=== PATIENT | male | born 1965 | race African-American/Black ===

== ENCOUNTER 2019-02-09 09:52 | Emergency (ER) | payer OTHER ==
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
[2019-02-09] MEDS ORDERED: CLINDAMYCIN IV 150 MG/ML (4 mL) VIAL ONE (11:12)
[2019-02-09] MEDS ORDERED: HYDROCODONE/APAP 5/325 MG TAB ONE (11:12)
--- NOTE | 2019-02-09 11:34 | ER ---
Nurse's Notes [facility] Name: Cb Potts Age: 53 yrs Sex: Male : 1965 Arrival Date: 02/09/2019 Time: 09:57 Bed 23 Private MD: Diagnosis: Dental pain Presentation: 02/09 10:03 Presenting complaint: Left lower molar pain x 5 days, left sided facial swelling, hb subjective fever, and chills x 3 days. Transition of care: patient was not received from another setting of care. Onset of symptoms was February 05, 2019. Risk Assessment: Do you want to hurt yourself or someone else? Patient reports no desire to harm self or others. Initial Sepsis Screen: Does the patient meet any 2 criteria? No. Patient's initial sepsis screen is negative. Does the patient have a suspected source of infection? No. Patient's initial sepsis screen is negative. Care prior to arrival: None. 10:03 Method Of Arrival: Ambulatory hb 10:03 Acuity: KATHIA 3 hb Historical: - Allergies: 10:06 No Known Allergies; hb - PMHx: 10:21 pulmonary embolism; CVA; aj1 - Immunization history:: Adult Immunizations up to date. - Social history:: Smoking status: Patient uses tobacco products, smokes one-half pack cigarettes per day. - Ebola Screening: : No symptoms or risks identified at this time. Screenin:18 Abuse screen: Denies threats or abuse. Denies injuries from another. Nutritional aj1 screening: No deficits noted. Tuberculosis screening: No symptoms or risk factors identified. 12:03 Fall Risk None identified. aj1 Assessment: 10:18 General: Appears in no apparent distress. uncomfortable, Behavior is calm, cooperative, aj1 appropriate for age. Pain: Complains of pain in left jaw. Neuro: Level of Consciousness is awake, alert, obeys commands. Cardiovascular: Patient's skin is warm and dry. Respiratory: Airway is patent Respiratory effort is even, unlabored, Respiratory pattern is regular, symmetrical. GI: No signs and/or symptoms were reported involving the gastrointestinal system. : No signs and/or symptoms were reported regarding the genitourinary system. EENT: Reports toothache, sore throat. Derm: Skin is normal. Musculoskeletal: Swelling present in left jaw, mouth and submental area. 11:20 Reassessment: Patient appears in no apparent distress at this time. No changes from aj1 previously documented assessment. Patient and/or family updated on plan of care and expected duration. Pain level reassessed. Patient is alert, oriented x 3, equal unlabored respirations, skin warm/dry/pink. 12:02 Reassessment: Patient appears in no apparent distress at this time. No changes from aj1 previously documented assessment. Patient and/or family updated on plan of care and expected duration. Pain level reassessed. Patient is alert, oriented x 3, equal unlabored respirations, skin warm/dry/pink. Vital Signs: 10:05 BP 171 / 92; Pulse 97; Resp 16; Temp 100.8(TE); Pulse Ox 97% on R/A; Weight 95.25 kg; hb Height 5 ft. 11 in. (180.34 cm); Pain 7/10; 12:02 BP 165 / 89; Pulse 92; Resp 18; Pulse Ox 97% on R/A; aj1 10:05 Body Mass Index 29.29 (95.25 kg, 180.34 cm) hb ED Course: 09:57 Patient arrived in ED. mr 10:05 Triage completed. hb 10:06 Arm band placed on right wrist. hb 10:18 Kym Acevedo, RN is Primary Nurse. aj1 10:18 Patient has correct armband on for positive identification. Bed in low position. Call aj1 light in reach. Side rails up X 1. Family at bedside. 10:18 No provider procedures requiring assistance completed. aj1 10:20 Anand Hawley NP is PHCP. pm1 10:20 Mark Mcgrath MD is Attending Physician. pm1 12:02 Patient did not have IV access during this emergency room visit. aj1 Administered Medications: 11:17 Drug: Clindamycin 300 mg Route: IM; Site: left gluteus; aj1 11:17 Drug: [place] 5 mg-325 mg 1 tabs Route: PO; aj1 12:01 Follow up: Response: No adverse reaction; Pain is decreased aj1 11:18 Drug: Clindamycin 300 mg Route: IM; Site: right gluteus; aj1 12:01 Follow up: Response: No adverse reaction aj1 Outcome: 11:33 Discharge ordered by . pm1 12:02 Discharged to home ambulatory. aj1 12:02 Condition: good 12:02 Discharge instructions given to patient, Instructed on discharge instructions, follow up and referral plans. no drinking with medication, no driving heavy equipment, medication usage, Demonstrated understanding of instructions, follow-up care, medications, Prescriptions given X 2. 12:03 Patient left the ED. aj1 Signatures: Kym Acevedo RN RN aj1 Rebecca Caceres mr Anand Hawley, INDUSTRIAL TECH INSTRUCTOR INDUSTRIAL TECH INSTRUCTOR pm1 Morelia Grimes RN RN hb
--- NOTE | 2019-02-09 11:35 | EDPHYS ---
Physician Documentation [facility] Name: Cb Potts Age: 53 yrs Sex: Male : 1965 Arrival Date: 02/09/2019 Time: 09:57 Bed 23 Private MD: ED Physician Mark Mcgrath HPI: 02/09 11:25 This 53 yrs old Black Male presents to ER via Ambulatory with complaints of Fever, pm1 Toothache. 11:25 The patient presents with pain, swelling. The problem is located in the lower left pm1 second bicuspid. Onset: The symptoms/episode began/occurred 5 day(s) ago. Duration: The symptoms are continuous. Modifying factors: The symptoms are alleviated by over the counter medications, Tylenol, NSAIDs. Associated signs and symptoms: Pertinent positives: subjective fever, Pertinent negatives: inability to eat, pain, vomiting. Severity of symptoms: in the emergency department the symptoms are actually worse. on and off dental pain for the past 1 year post getting root canal to tooth that is giving him pain. Historical: - Allergies: 10:06 No Known Allergies; hb - PMHx: 10:21 pulmonary embolism; CVA; aj1 - Immunization history:: Adult Immunizations up to date. - Social history:: Smoking status: Patient uses tobacco products, smokes one-half pack cigarettes per day. - Ebola Screening: : No symptoms or risks identified at this time. ROS: 11:25 Constitutional: Negative for fever, chills, and weight loss, Eyes: Negative for injury, pm1 pain, redness, and discharge. 11:25 Neck: Negative for injury, pain, and swelling, Cardiovascular: Negative for chest pain, palpitations, and edema, Respiratory: Negative for shortness of breath, cough, wheezing, and pleuritic chest pain, Abdomen/GI: Negative for abdominal pain, nausea, vomiting, diarrhea, and constipation, Back: Negative for injury and pain, MS/Extremity: Negative for injury and deformity, Skin: Negative for injury, rash, and discoloration. 11:25 Neuro: Negative for headache, weakness, numbness, tingling, and seizure. 11:25 ENT: Positive for dental pain, Negative for sore throat, difficulty swallowing, difficulty handling secretions, hoarseness. Exam: 11:25 Constitutional: This is a well developed, well nourished patient who is awake, alert, pm1 and in no acute distress. Head/Face: Normocephalic, atraumatic. Trace swelling to left mandible Eyes: Pupils equal round and reactive to light, extra-ocular motions intact. Lids and lashes normal. Conjunctiva and sclera are non-icteric and not injected. Cornea within normal limits. Periorbital areas with no swelling, redness, or edema. 11:25 Neck: Trachea midline, no thyromegaly or masses palpated, and no cervical lymphadenopathy. Supple, full range of motion without nuchal rigidity, or vertebral point tenderness. No Meningismus. Chest/axilla: Normal chest wall appearance and motion. Nontender with no deformity. No lesions are appreciated. Cardiovascular: Regular rate and rhythm with a normal S1 and S2. No gallops, murmurs, or rubs. Normal PMI, no JVD. No pulse deficits. Respiratory: Lungs have equal breath sounds bilaterally, clear to auscultation and percussion. No rales, rhonchi or wheezes noted. No increased work of breathing, no retractions or nasal flaring. Back: No spinal tenderness. No costovertebral tenderness. Full range of motion. Skin: Warm, dry with normal turgor. Normal color with no rashes, no lesions, and no evidence of cellulitis. MS/ Extremity: Pulses equal, no cyanosis. Neurovascular intact. Full, normal range of motion. 11:25 ENT: External ear(s): are unremarkable, Ear canal(s): are normal, TM's: are normal, Mouth: is normal, no abscess, no drooling, (-) tongue elevation (-) trismus no ulcerations, no gum abnomalities, no lip abnormalities, no mucosal abnormalities, no tongue abnormalities, Posterior pharynx: is normal, Dental exam: abscess, is not appreciated, pain, specifically in the lower left second bicuspid (#20). 11:25 Neuro: Orientation: is normal, Motor: is normal, moves all fours. Vital Signs: 10:05 BP 171 / 92; Pulse 97; Resp 16; Temp 100.8(TE); Pulse Ox 97% on R/A; Weight 95.25 kg; hb Height 5 ft. 11 in. (180.34 cm); Pain 7/10; 12:02 BP 165 / 89; Pulse 92; Resp 18; Pulse Ox 97% on R/A; aj1 10:05 Body Mass Index 29.29 (95.25 kg, 180.34 cm) MDM: 10:38 Patient medically screened. pm1 11:01 Data reviewed: vital signs. Data interpreted: Pulse oximetry: on room air is 97 %. pm1 Interpretation: normal. 11:32 Counseling: I had a detailed discussion with the patient and/or guardian regarding: the pm1 historical points, exam findings, and any diagnostic results supporting the discharge/admit diagnosis, the need for outpatient follow up, for definitive care, a dentist, to return to the emergency department if symptoms worsen or persist or if there are any questions or concerns that arise at home. Administered Medications: 11:17 Drug: Clindamycin 300 mg Route: IM; Site: left gluteus; aj1 11:17 Drug: [place] 5 mg-325 mg 1 tabs Route: PO; aj1 12:01 Follow up: Response: No adverse reaction; Pain is decreased aj1 11:18 Drug: Clindamycin 300 mg Route: IM; Site: right gluteus; aj1 12:01 Follow up: Response: No adverse reaction aj1 Disposition: 02/10 07:46 Co-signature as Attending Physician, Mark Mcgrath MD I agree with the assessment and nj plan of care. Disposition: 02/09/19 11:33 Discharged to Home. Impression: Dental pain. - Condition is Stable. - Discharge Instructions: Dental Abscess, Dental Pain. - Prescriptions for Clindamycin HCl 300 mg Oral Capsule - take 1 capsule by ORAL route every 6 hours for 10 days; 40 capsule. Tylenol- Codeine #3 300-30 mg Oral Tablet - take 2 tablets by ORAL route every 6 hours As needed; 20 tablet. - Medication Reconciliation Form, Thank You Letter, Antibiotic Education, Prescription Opioid Use form. - Follow up: Emergency Department; When: As needed; Reason: Worsening of condition. Follow up: Private Physician; When: 2 - 3 days; Reason: Recheck today's complaints, Continuance of care, Re-evaluation by your physician. - Problem is new. - Symptoms have improved. Signatures: Kym Acevedo RN RN aj1 Anand Hawley, BRUSHER HAND BRUSHER HAND pm1 Morelia Grimes RN RN Mark Mcgrath MD MD nj Corrections: (The following items were deleted from the chart) 02/09 12:03 11:33 02/09/2019 11:33 Discharged to Home. Impression: Dental pain. Condition is aj1 Stable. Forms are Medication Reconciliation Form, Thank You Letter, Antibiotic Education, Prescription Opioid Use. Follow up: Emergency Department; When: As needed; Reason: Worsening of condition. Follow up: Private Physician; When: 2 - 3 days; Reason: Recheck today's complaints, Continuance of care, Re-evaluation by your physician. Problem is new. Symptoms have improved. pm1
== END 2019-02-09 12:03 | disposition home or self-care (01) ==
LOC: ER 09:52
DX: K08.89 Other specified disorders of teeth and supporting structures (principal); F17.210 Nicotine dependence, cigarettes, uncomplicated
CPT/HCPCS: 96372; 99283; S0077